=== PATIENT | female | born 2000 | race African-American/Black ===

== ENCOUNTER 2024-08-18 01:06 | Emergency (ER) | payer OTHER ==
[~2024-08-18] VITALS: Ht 160 cm; Wt 90.7 kg
[2024-08-18] MEDS ORDERED: LEVOTHYROXINE25 MCG (01:58)
[2024-08-18] MEDS ORDERED: TETANUS & DIPHTHERIA TOX,ADULT 0.5 ML VIAL IM STA (02:55)
[2024-08-18] MEDS ORDERED: CEFAZOLIN SODIUM 1,000 MG VIAL IM STA (02:56)
[2024-08-18] MEDS ORDERED: TETANUS DIPHTHERIA TOX. ADSOR 5 ML VIAL IM ONE (02:59)
[2024-08-18] MEDS ORDERED: CEFAZOLIN SODIUM 1,000 MG VIAL ONE (02:59)
[2024-08-18] MEDS ORDERED: LIDOCAINE HCL 1% 10ML VIAL ONE ×2 (02:59→03:00)
== END 2024-08-18 04:10 | disposition home or self-care (01) ==
LOC: ER 01:09
DX: S51.822A Laceration with foreign body of left forearm, initial encounter (principal); W01.0XXA Fall on same level from slipping, tripping and stumbling without subsequent striking against object, initial encounter; Y93.89 Activity, other specified; Y92.89 Other specified places as the place of occurrence of the external cause